=== PATIENT | female | born 1960 | race Caucasian/White ===

== ENCOUNTER 2016-12-02 17:52 | Emergency (ER) | payer SELFPAY ==
--- NOTE | 2016-12-02 18:48 | Emergency Department Report ---
Chief Complaint: Abdominal Pain Stated Complaint: STOMACH PAIN - HPI History of Present Illness: 56-year-old female past medical history diabetes presents with complaint of worsening sharp epigastric abdominal pain spreading throughout abdomen since this morning - ROS Review of Systems: 2 days worsening abdominal pain - Exam Vital Signs: Vital Signs 12/02/16 18:29 Temperature 98.4 F Pulse Rate 98 H Respiratory 22 Rate Blood Pressure 169/90 O2 Sat by Pulse 98 Oximetry Physical Exam: Positive suprapubic tenderness positive abdominal pain in all 4 quadrants MSE screening note: Focused history and physical exam performed. Due to findings the following was ordered: Screening Assessment/Plan/Differential Dx: Abdominal pain 1- This initial assessment/diagnostic orders/clinical plan/ treatment(s) is/are subject to change based on pt's health status, clinical progression and re- assessment by fellow clinical providers in the ED. Further treatment and workup at subsequent clinical provers discretion. Patient/guardians urged not to elope from ED as their condition may be serious if not clinically assessed and managed. 2-abdominal labs, noncontrast CT, EKG ED Disposition for MSE Condition: Stable Instructions: Abdominal Pain (ED)
--- NOTE | 2016-12-02 19:26 | Cat Scan Report ---
FINAL REPORT PROCEDURE: CT ABDOMEN PELVIS WO CON TECHNIQUE: Computerized axial tomography of the abdomen and pelvis was performed without intravenous contrast. This study is performed without intravascular contrast material and its sensitivity for abdominal and pelvic pathology, including neoplasms, inflammation, abscess, free fluid, thrombosis, arterial dissection and infarction, is reduced compared with a contrast enhanced study. HISTORY: gen abd pain worsening COMPARISON: No prior studies are available for comparison. FINDINGS: Mild hypoventilatory changes are seen in the lower lungs spleen is normal in size. There is likely fatty infiltration of the liver which is top normal limits in size. Mild focal fatty sparing is seen near the gallbladder fossa. Gallbladder and pancreas display no abnormalities. Adrenal glands and abdominal aorta are normal in size. Multiple low-density lesions are seen in the kidneys, some which have rim calcifications. Findings are most likely due to polycystic renal disease but correlation with ultrasound is recommended to assure no solid masses. There are likely small renal stones present bilaterally but no ureteral stone or hydronephrosis is seen. Urinary bladder is decompressed and wall thickness cannot be accurately evaluated. Uterus is anteverted. It has heterogeneously hypodense area in the fundus measuring approximately 5.9 x 5.5 cm. This could be a large fibroid no adnexal masses are seen. Normal appendix is seen. No evidence of bowel obstruction is seen. There may be mild right-sided constipation. IMPRESSION: Likely changes of polycystic renal disease are seen and there may be a few tiny nonobstructing renal stones. Correlation with renal ultrasound is recommended Likely 5.9 x 5.5 cm fibroid is present in the uterine fundus. There may be mild right-sided constipation.
[2016-12-02 19:39] LABS: Basophils % (Auto) 0.4 % (0.0-1.8); Eosinophils % (Auto) 2.5 % (0.0-4.3); Hemoglobin 11.6 gm/dl (10.1-14.3); Mean Corpuscular HGB Conc 32 % (30-34); Mean Corpuscular Volume 76 fl (79-97); Platelet Count 367 K/mm3 (140-440); Red Blood Count 4.73 M/mm3 (3.65-5.03); Red Cell Distribution Width 14.3 % (13.2-15.2)
[2016-12-02 19:41] LABS: Amylase 60 units/L (27-131); Lipase 49 units/L (13-60)
[2016-12-02 19:42] LABS: Alanine Aminotransferase 12 units/L (7-56); Albumin 4.2 g/dL (3.9-5); Albumin/Globulin Ratio 1.1 %; Alkaline Phosphatase 112 units/L (35-129); Anion Gap 20 mmol/L; Blood Urea Nitrogen 27 mg/dL (7-17); Calcium 9.8 mg/dL (8.4-10.2); Carbon Dioxide 27 mmol/L (22-30); Chloride 95.7 mmol/L (98-107); Creatine Kinase 50 units/L (30-135); Glucose 189 mg/dL (65-100); Mean Corpuscular Hemoglobin 25 pg (28-32); Potassium 4.4 mmol/L (3.6-5.0); Sodium 138 mmol/L (137-145); Total Protein 7.9 g/dL (6.3-8.2)
[2016-12-02 19:46] LABS: Bilirubin,Direct < 0.2 mg/dL (0-0.2)
[2016-12-02 19:49] LABS: Bacteria,Urine 1+ /HPF (Negative); Bilirubin,Urine NEG (Negative); Blood,Urine MOD (Negative); Ketones,Urine NEG (Negative); Leukocyte Esterase,Urine SM (Negative); Nitrite,Urine NEG (Negative); Urobilinogen,Urine < 2.0 mg/dL (<2.0)
[2016-12-03] MEDS ORDERED: MACROBID PO ONE (06:46)
--- NOTE | 2016-12-03 07:06 | Emergency Department Report ---
HPI - General Chief Complaint: Abdominal Pain Time Seen by Provider: 12/03/16 06:45 - HPI HPI: This is a 56-year-old female presents to the emergency department with complaint of some generalized abdominal pain for the past 5 days. Occasionally she will have some nausea and vomiting. She also feels that she is constipated despite having a bowel movement yesterday. She has some burning with urination. She tried some [id number] medication without any relief. She has a past medical history of [id number] diabetes on glyburide and metformin. She has a primary care physician but has not seen them regarding her symptoms. No recent travel or sick contacts at home. ED Past Medical Hx - Past Medical History Hx Diabetes: Yes - Surgical History Past Surgical History?: No - Social History Smoking Status: Never Smoker Substance Use Type: None - Medications Home Medications: Home Medications Medication Instructions Recorded Confirmed Last Taken Type Docusate Sodium [Colace] 100 mg PO BID PRN #20 capsule 12/03/16 Unknown Rx Magnesium Citrate [Citrate of 300 ml PO NOW #1 bottle 12/03/16 Unknown Rx Magnesia] Nitrofurantoin Wilcox/M-Cryst 100 mg PO BID #14 capsule 12/03/16 Unknown Rx [Macrobid CAP] ED Review of Systems ROS: Stated complaint: STOMACH PAIN Other details as noted in HPI Comment: All other systems reviewed and negative Constitutional: denies: chills, fever Eyes: denies: eye pain, eye discharge, vision change ENT: denies: ear pain, throat pain Respiratory: denies: cough, shortness of breath, wheezing Cardiovascular: denies: chest pain, palpitations Gastrointestinal: abdominal pain, constipation Genitourinary: dysuria. denies: discharge Musculoskeletal: denies: back pain, joint swelling, arthralgia Skin: denies: rash, lesions Neurological: denies: headache, weakness, paresthesias Physical Exam - Physical Exam Vital Signs: Vital Signs 12/02/16 12/03/16 12/03/16 18:29 04:11 05:02 Temperature 98.4 F 98.4 F Pulse Rate 98 H 65 63 Respiratory 22 18 16 Rate Blood Pressure 169/90 146/77 O2 Sat by Pulse 98 100 97 Oximetry 12/03/16 12/03/16 12/03/16 05:16 05:20 05:30 Temperature Pulse Rate 61 62 59 L Respiratory 18 12 9 L Rate Blood Pressure 141/71 141/71 132/63 O2 Sat by Pulse 98 98 100 Oximetry 12/03/16 12/03/16 12/03/16 05:40 05:50 06:00 Temperature Pulse Rate 62 59 L 59 L Respiratory 13 13 16 Rate Blood Pressure 132/63 132/63 124/64 O2 Sat by Pulse 98 99 98 Oximetry Physical Exam: GENERAL: The patient is well-developed well-nourished. HENT: Normocephalic. Atraumatic. Patient has moist mucous membranes. EYES: Extraocular motions are intact. Pupils equal reactive to light bilaterally. NECK: Supple. Trachea is midline. CHEST/LUNGS: Clear to auscultation. There is no respiratory distress noted. HEART/CARDIOVASCULAR: Regular. There is no tachycardia. There is no gallop rub or murmur. ABDOMEN: Abdomen is soft. Mild generalized tenderness to palpation. No guarding or rebound tenderness. Patient has normal bowel sounds. There is no abdominal distention. SKIN: There is no rash. There is no edema. There is no diaphoresis. NEURO: The patient is awake, alert, and oriented. The patient is cooperative. The patient has no focal neurologic deficits. The patient has normal speech. MUSCULOSKELETAL: There is no tenderness or deformity. There is no limitation range of motion. There is no evidence of acute injury. ED Course Vital Signs 12/02/16 12/03/16 12/03/16 18:29 04:11 05:02 Temperature 98.4 F 98.4 F Pulse Rate 98 H 65 63 Respiratory 22 18 16 Rate Blood Pressure 169/90 146/77 O2 Sat by Pulse 98 100 97 Oximetry 12/03/16 12/03/16 12/03/16 05:16 05:20 05:30 Temperature Pulse Rate 61 62 59 L Respiratory 18 12 9 L Rate Blood Pressure 141/71 141/71 132/63 O2 Sat by Pulse 98 98 100 Oximetry 12/03/16 12/03/16 12/03/16 05:40 05:50 06:00 Temperature Pulse Rate 62 59 L 59 L Respiratory 13 13 16 Rate Blood Pressure 132/63 132/63 124/64 O2 Sat by Pulse 98 99 98 Oximetry ED Medical Decision Making - Lab Data Result diagrams: 12/02/16 18:57 12/02/16 18:57 - EKG Data -: EKG Interpreted by Me EKG shows normal: sinus rhythm, axis, intervals, QRS complexes (Q waves to the anterior and inferior leads), ST-T waves Rate: normal - EKG Data When compared to previous EKG there are: previous EKG unavailable Interpretation: other (sinus rhythm, Q waves to the anterior and inferior leads , no ST elevation [place]) - Radiology Data Radiology results: report reviewed PROCEDURE: CT ABDOMEN PELVIS WO CON TECHNIQUE: Computerized axial tomography of the abdomen and pelvis was performed without intravenous contrast. This study is performed without intravascular contrast material and its sensitivity for abdominal and pelvic pathology, including neoplasms, inflammation, abscess, free fluid, thrombosis, arterial dissection and infarction, is reduced compared with a contrast enhanced study. HISTORY: gen abd pain worsening COMPARISON: No prior studies are available for comparison. FINDINGS: Mild hypoventilatory changes are seen in the lower lungs spleen is normal in size. There is likely fatty infiltration of the liver which is top normal limits in size. Mild focal fatty sparing is seen near the gallbladder fossa. Gallbladder and pancreas display no abnormalities. Adrenal glands and abdominal aorta are normal in size. Multiple low-density lesions are seen in the kidneys, some which have rim calcifications. Findings are most likely due to polycystic renal disease but correlation with ultrasound is recommended to assure no solid masses. There are likely small renal stones present bilaterally but no ureteral stone or hydronephrosis is seen. Urinary bladder is decompressed and wall thickness cannot be accurately evaluated. Uterus is anteverted. It has heterogeneously hypodense area in the fundus measuring approximately 5.9 x 5.5 cm. This could be a large fibroid no adnexal masses are seen. Normal appendix is seen. No evidence of bowel obstruction is seen. There may be mild right-sided constipation. IMPRESSION: Likely changes of polycystic renal disease are seen and there may be a few tiny nonobstructing renal stones. Correlation with renal ultrasound is recommended Likely 5.9 x 5.5 cm fibroid is present in the uterine fundus. There may be mild right-sided constipation. - Medical Decision Making 56-year-old female presents with 4-5 day history of some abdominal pain, occasional nausea and vomiting and feels as if she is constipated. Labs are mostly unremarkable except for mild UTI. CT shows some mild constipation and a fibroid in the uterus. Vital signs stable throughout her ED course. Will go home on stool softeners, laxatives and Macrobid for UTI. Will return to the ER with any worsening of her symptoms or any acute distress. Critical Care Time: No Critical care attestation.: If time is entered above; I have spent that time in minutes in the direct care of this critically ill patient, excluding procedure time. ED Disposition Clinical Impression: Abdominal pain, UTI (urinary tract infection), Increased stool volume Disposition: TO HOME OR SELFCARE Is pt being admited?: No Condition: Stable Instructions: Uterine Fibroids (ED), Urinary Tract Infection in Women (ED), Abdominal Pain (ED) Additional Instructions: Please follow-up with your primary care physician in the next few days. I have given you a referral for a local [facility]NAGER [facility] in case she would like to follow up regarding your fibroid. Return to the emergency Department with any worsening of your symptoms or any acute distress. Prescriptions: Docusate Sodium [Colace] 100 mg PO BID PRN #20 capsule PRN Reason: Constipation Magnesium Citrate [Citrate of Magnesia] 300 ml PO NOW #1 bottle Nitrofurantoin Wilcox/M-Cryst [Macrobid CAP] 100 mg PO BID #14 capsule Referrals: PRIMARY CAREMD [Primary Care Provider] - 3-5 Days STEVEN JOHNSON MD [Staff Physician] - 3-5 Days Time of Disposition: 07:06 Print Language: JAPANESE
[2016-12-03 07:19] VITALS: BP 141/77
== END 2016-12-03 07:20 | disposition home or self-care (01) ==
LOC: EDSEX → ED 17:52
DX: N39.0 Urinary tract infection, site not specified (principal); E11.9 Type 2 diabetes mellitus without complications
CPT/HCPCS: 36415; 74176; 80048; 80074; 81001; 82140; 82150; 82550; 82805; 83690; 84484; 84703; 85025; 87086; 93005; 93010; 99284